=== PATIENT | female | born 1990 | race Caucasian/White ===

== ENCOUNTER 2018-08-03 22:42 | Emergency (ER) | payer OTHER, MEDICAID ==
[~2018-08-03] VITALS: Ht 147.3 cm; Wt 95.3 kg
[~2018-08-03 22:42] MED LIST: NOHOMEMEDICATIONS
[2018-08-04 01:07] VITALS: BP 131/81
== END 2018-08-04 01:08 | disposition home or self-care (01) ==
LOC: M.ERS 22:42
DX: S90.31XA Contusion of right foot, initial encounter (principal); Z88.6 Allergy status to analgesic agent; V03.10XA Pedestrian on foot injured in collision with car, pick-up truck or van in traffic accident, initial encounter; Y92.89 Other specified places as the place of occurrence of the external cause; Y93.89 Activity, other specified; Y99.8 Other external cause status